=== PATIENT | female | born 1945 ===

== ENCOUNTER → 2020-01-29 | Outpatient (CLI) | payer MEDICARE | LOC: GMA MATASK 11:04 | PROVIDERS: ATTEND Family Medicine | DX: I10 Essential (primary) hypertension (principal); E11.21 Type 2 diabetes mellitus with diabetic nephropathy ==

== ENCOUNTER → 2020-02-23 | Outpatient (CLI) | payer MEDICARE ==
--- NOTE | 2020-02-23 13:33 | MRI ---
EXAM DESCRIPTION: Lumbar Spine w/o Contrast CLINICAL HISTORY: POLYNEUROPATHY UNSPEC. Low back pain with left lower extremity radiculopathy COMPARISON: None Available. TECHNIQUE: MRI of the lumbar spine is performed according to our usual protocol with axial and sagittal multi sequence imaging. FINDINGS: Normal alignment lumbar spine is present with loss of normal lordosis in the upper lumbar region with significant spinal canal stenosis from L2-3 through L4-5 with diffuse disc desiccation. Marked edematous endplate changes on either side of the L2-3 disc with Schmorl's node extending into the inferior L2 vertebral body. Diffuse disc desiccation is present at essentially all levels. Vertebral height is maintained. No destructive marrow process or vertebral body process noted. Mild annular bulge and disc desiccation with adequate canal at T10-11 is present. Modest annular bulge at T11-12 with preserved disc signal intensity noted. Disc desiccation with normal disc contour and mild facet arthropathy at T12-L1 is present with large adequate canal and neural foramina. Paraspinous and retroperitoneal structures are normal in appearance. L1-2: Disc desiccation with broad-based 3 mm annular bulge with minimal additional left-sided disc protrusion asymmetric into the left lateral recess region. Adequate central canal with modest facet arthropathy. Mildly narrowed neural foramina bilaterally. Minimal asymmetric left-sided disc protrusion suspected L2-3: Disc desiccation and endplate irregularity with Schmorl's node into the inferior L2 endplate with disc space narrowing and significant type I edematous changes with broad-based 4 mm annular bulge and advanced facet arthropathy and multifactorial severe canal stenosis with AP diameter thecal sac five or 6 mm. Bilateral severe L2 foraminal stenosis. L3-4: Disc desiccation with preserved disc height with broad-based 4 mm annular bulge and marked facet and ligamentum flavum hypertrophy with moderate circumferential central stenosis with thecal sac estimated at six or 7 mm in diameter. Moderate right and severe left L3 foraminal stenosis on multifactorial basis. L4-5: Disc desiccation with preserved disc height with 4 mm annular bulge and severe facet arthropathy. Mild two or 3 mm anterolisthesis with severe central canal stenosis, worse on the left involving the lateral recess with bilateral severe L4 foraminal stenosis. Thecal sac diameter just below the disc space is estimated at approximately 5 mm. L5-S1: Disc desiccation with preserved disc height with 3 mm annular bulge and adequate thecal sac and spinal canal. Modest facet and ligamentum flavum hypertrophy. Severe right and moderately severe left L5 foraminal stenosis. IMPRESSION: 1. Normal alignment of the lumbar spine with loss of upper lumbar lordosis and minimal estimated two or 3 mm degenerative spondylolisthesis at the L4-5 level. Diffuse disc desiccation with advanced endplate degenerative changes and reactive marrow edematous changes at L2-3 noted. 2. Essentially normal examination from T12-L-1 cephalad with broad-based annular bulge L1-2 with minimal left-sided protrusion with adequate canal and mildly narrowed neural foramina. 3. Severe multifactoral circumferential central stenosis L2-3 and L4-5 and moderately severe changes at L3-4, all secondary to disc annular bulges and posterior element hypertrophy 4. Mildly asymmetric changes to the left involving the lateral recess at L4-5 with bilateral severe L4 foraminal stenosis. 5. Adequate thecal sac L5-S1 with severe right and moderately severe left foraminal stenosis from annular bulge and facet disease. Electronically signed by: Dilshad Galaviz MD 02/23/2020 1:31 PM CDT
== END ==
LOC: MRI 07:51
PROVIDERS: ATTEND Family Medicine
DX: G62.9 Polyneuropathy, unspecified (principal); M43.16 Spondylolisthesis, lumbar region; M51.36 Other intervertebral disc degeneration, lumbar region; M51.86 Other intervertebral disc disorders, lumbar region; M48.061 Spinal stenosis, lumbar region without neurogenic claudication; M48.07 Spinal stenosis, lumbosacral region; R60.9 Edema, unspecified

== ENCOUNTER → 2020-04-05 | Outpatient (CLI) | payer MEDICARE ==
--- NOTE | 2020-04-05 16:23 | RAD ---
EXAM DESCRIPTION: Hand,Right 3 Views CLINICAL HISTORY: PAIN IN RIGHT HAND COMPARISON: None. TECHNIQUE: 3 views right FINDINGS: Degenerative changes are observed in the metacarpal phalangeal joint of the fifth digit. Degenerative calcification is observed about the joint. Mild distal interphalangeal joint arthritis is observed. An old fracture of the distal tuft of the distal phalanx of the second digit is observed. Calcification of the triangular fibrocartilage is noted. IMPRESSION: Mild degenerative changes are observed. No acute fracturing is detected. Electronically signed by: Eddi Velazquez MD 04/05/2020 4:21 PM CDT
== END ==
LOC: RAD 08:13
PROVIDERS: ATTEND Orthopaedic Surgery
DX: M19.041 Primary osteoarthritis, right hand (principal)

== ENCOUNTER → 2020-04-22 | Outpatient (CLI) | payer MEDICARE | LOC: LAB.O 10:51 | PROVIDERS: ATTEND Orthopaedic Surgery | DX: Z01.818 Encounter for other preprocedural examination (principal) ==

== ENCOUNTER 2020-05-07 05:32 | Day surgery (SDC) | payer MEDICARE ==
[2020-05-07] MEDS ORDERED: ceFAZolin SODIUM 1 GM VIAL ONE (06:34)
[2020-05-07] MEDS ORDERED: SODIUM CHL 0.9% 100ML MINI-BAG 100 ML IVPB ONE (06:34)
[2020-05-07] MEDS ORDERED: LACTATED RINGERS 1,000 ML ONE (06:34)
[2020-05-07] MEDS ORDERED: PROPOFOL 200 MG/20 ML VIAL IV ONE (07:00)
[2020-05-07] MEDS ORDERED: LIDOCAINE 1% 10 ML VIAL INJ ONE ×2 (07:00→12:04)
[2020-05-07] MEDS ORDERED: BUPIVACAINE 0.25% INJ 30 ML VIAL INJ ONE (12:04)
[2020-05-07] MEDS ORDERED: LACTATED RINGERS 1,000 ML IVS ONE (13:15)
[2020-05-07] MEDS: VANCOMYCIN HCL INJ 1,000 MG VIAL IVPB ONE ×2 (14:42→14:48)
[2020-05-07] MEDS: ceFAZolin SODIUM 1 GM VIAL ONE ×2 (14:42→14:48)
[2020-05-07 15:46] VITALS: O2SAT 98
[2020-05-07 15:48] VITALS: BP 151/85; TEMP 98.2
--- NOTE | 2020-05-08 08:57 | OP ---
DATE OF PROCEDURE: 05/07/20 PREOPERATIVE DIAGNOSIS: 1. Right carpal tunnel syndrome. POSTOPERATIVE DIAGNOSIS: 1. Right carpal tunnel syndrome. PROCEDURE: 1. Carpal tunnel release. SURGEON: Vinayak Xie MD. STRIP CUTTING MACHINE OPERATOR: Kvng Fuller CST, SA-C. ANESTHESIA: Local with sedation. COMPLICATIONS: None. FINDINGS: Thickening of the transverse carpal ligament and narrowing of the median nerve across the carpal tunnel. INDICATION: Ms. Lopez has a history of symptoms consistent with carpal tunnel syndrome . Because of her symptoms and ongoing discomfort and failure of conservative measures, she requested operative intervention. After discussing the risks, benefits and alternatives to that, the patient has given informed consent for carpal tunnel release. PROCEDURE: The patient was brought to the Operating Room and placed in the supine position. Sedation was administered and local anesthetic was injected into the operative area under sterile conditions. After the injection of anesthetic, the arm was sterilely prepped and draped. A longitudinal incision was made directly overlying the transverse carpal ligament and blunt dissection was carried down to the ligament. The transverse carpal ligament was sharply transected along its length and a Henagar elevator was used to ensure complete release of the ligament. Once release had been confirmed, the wound was thoroughly irrigated and the wound was closed with Nylon suture. A sterile dressing was placed and the patient was taken to the Day Surgery Unit. POSTOPERATIVE PLAN: The patient has been encouraged to do range of motion of the digits and will followup with us in two days. #[id number] MTDD
== END 2020-05-07 15:45 | disposition home or self-care (01) ==
LOC: AMB 05:32
PROVIDERS: ATTEND Orthopaedic Surgery
DX: G56.02 Carpal tunnel syndrome, left upper limb (principal); E11.9 Type 2 diabetes mellitus without complications; I10 Essential (primary) hypertension; M06.9 Rheumatoid arthritis, unspecified; Z79.84 Long term (current) use of oral hypoglycemic drugs; Z79.899 Other long term (current) drug therapy
CPT/HCPCS: 01810; 36416; 64721; 82948; J0690; J3370; J7050; J7120